=== PATIENT | male | born 1945 | race Caucasian/White ===

== ENCOUNTER 2016-07-20 05:14 | Inpatient (IN) | payer MEDICARE, OTHER ==
[2016-07-20] VITALS (22 sets, daily range): BP systolic 124–154; BP diastolic 61–80; PULSE 56–87; RESP 0–18; Ht 175.3 cm; Wt 92.7 kg
[~2016-07-20] VITALS: Ht 175.3 cm; Wt 92.7 kg
[2016-07-20] MEDS ORDERED: LACTATED RINGER'S 1,000 ML IV* SCH ×2 (06:00)
[2016-07-20] MEDS ORDERED: VANCOMYCIN 1 GM (PMX) 250 ML IVPB SCH (06:00)
[2016-07-20] MEDS ORDERED: PROPOFOL 100 ML ONE (06:49)
[2016-07-20] MEDS ORDERED: ROCURONIUM 50 MG INJ ONE ×2 (06:49→08:55)
[2016-07-20] MEDS ORDERED: SUCCINYLCHOLINE CHLORIDE 100 MG/5 ML SYG IV ONE ×2 (06:49→08:55)
[2016-07-20] MEDS ORDERED: FENTAnyl 50 MCG/ML VIAL ONE (06:50)
[2016-07-20] MEDS ORDERED: MIDAZOLAM 1 MG/ML 2 ML INJ ONE (06:50)
[2016-07-20] MEDS ORDERED: ASPI-664 PO (06:58)
[2016-07-20] MEDS ORDERED: AMLO-147 PO (06:58)
[2016-07-20] MEDS ORDERED: UBID50TA PO (06:58)
[2016-07-20] MEDS ORDERED: ATOR40TA68 PO (06:58)
[2016-07-20] MEDS ORDERED: FAMO40TA52 PO (06:58)
[2016-07-20] MEDS ORDERED: HETASTARCH 6% NACL 500 ML BAG ONE (07:00)
[2016-07-20] MEDS ORDERED: MULT-238 PO (07:01)
[2016-07-20] MEDS ORDERED: LACT1CAP47 PO (07:01)
--- NOTE | 2016-07-20 07:05 | HPN ---
Date/Time of Note Date/Time of Note DATE: 07/20/16 TIME: 07:05 Interval H&P Admission Note Pt. seen H&P reviewed: No system changes TALIB MAHMOOD MD July 20, 2016 07:05
[2016-07-20] MEDS ORDERED: LABETALOL HCL 20MG INJ ONE (07:21)
[2016-07-20] MEDS ORDERED: GELATIN SIZE 100 SPONGE ONE (07:22)
[2016-07-20] MEDS ORDERED: THROMBIN 5000 UNIT VIAL ONE (07:22)
[2016-07-20] MEDS ORDERED: POLYMYXIN/BACITRACIN 1L IRRIG ONE (07:22)
[2016-07-20] MEDS ORDERED: BUPIVACAINE 0.25% (MPF) 10 ML 10 ML VIAL ONE (07:22)
[2016-07-20] MEDS ORDERED: hydrALAzine 20 MG INJ ONE (07:31)
[2016-07-20] MEDS ORDERED: ACETAMINOPHEN 1000MG/100ML IV 100 ML ONE (07:32)
[2016-07-20] MEDS ORDERED: PHENYLephrine (100 MCG/ML) 5ML SYG ONE ×3 (07:36→09:08)
[2016-07-20] MEDS ORDERED: KETOROLAC 30 MG INJ ONE (08:08)
[2016-07-20] MEDS ORDERED: DEXAMETHASONE 4 MG/ML 1 ML INJ ONE (08:08)
[2016-07-20] MEDS ORDERED: ONDANSETRON 4 MG INJ ONE (08:08)
[2016-07-20] MEDS ORDERED: METOCLOPRAMIDE 10 MG INJ ONE (08:08)
[2016-07-20] MEDS ORDERED: NEOSTIGMINE 3 MG/3 ML SYRINGE ONE (08:47)
[2016-07-20] MEDS ORDERED: GLYCOPYRROLATE 0.4 MG INJ ONE (08:47)
[2016-07-20] MEDS ORDERED: EPHEDrine SULFATE 50 MG/5 ML SYG ONE (08:55)
[2016-07-20] MEDS ORDERED: LABETALOL HCL 20MG INJ IV PRN (09:00)
[2016-07-20] MEDS ORDERED: METOCLOPRAMIDE 10 MG INJ IV PRN (09:00)
[2016-07-20] MEDS ORDERED: DIPHENHYDRAMINE 50 MG INJ IV PRN (09:00)
[2016-07-20] MEDS ORDERED: HYDROmorphONE (0.2 MG/ML) 10ML SYG IV PRN ×3 (09:00)
[2016-07-20] MEDS ORDERED: hydrALAzine 20 MG INJ IV PRN (09:00)
[2016-07-20] MEDS ORDERED: MEPERIDINE 25 MG INJ IV PRN (09:00)
[2016-07-20] MEDS ORDERED: EPHEDrine SULFATE 50 MG/5 ML SYG IV PRN (09:00)
[2016-07-20] MEDS ORDERED: ONDANSETRON 4 MG INJ IV PRN ×2 (09:00→10:30)
[2016-07-20] MEDS ORDERED: morphine (1 MG/ML) 10ML SYRINGE IV PRN ×3 (09:00)
[2016-07-20] MEDS ORDERED: EPINEPHrine 0.1 MG/ML SYG ONE (09:10)
[2016-07-20] MEDS ORDERED: PHENYLephrine 10 MG INJ ONE (09:11)
--- NOTE | 2016-07-20 10:23 | OPR ---
Date/Time of Note Date/Time of Note DATE: 07/20/16 TIME: 10:20 Operative Report Preoperative Diagnosis Lumbar spinal stenosis at L3-L4 and L5 Postoperative Diagnosis Same Operation Performed Central decompressive laminectomy at L3 Central decompressive laminectomy at L4 Central decompressive laminectomy at L5 Medial facetectomy and foraminotomy L3-4 L4-5 and L5-S1 bilaterally Surgeon: TALIB MAHMOOD MD press assistant and feeder: BÁRBARA TORO Anesthesia: general Anesthesiologist: EVONNE CATES MD Estimated Blood Loss: 50 - 100 ml's Specimens Spinous processes of L3-L4 and L5 Tubes/Drains 2 medium Hemovac drains Complications: None Pt Condition Post Procedure: stable Operative\Procedure Findings At surgery, lumbar spinal stenosis at L3-L4 and L5 was confirmed TALIB MAHMOOD MD July 20, 2016 10:23
--- NOTE | 2016-07-20 10:29 | RADRPT ---
PROCEDURE: XR Lumbar Spine. CLINICAL INDICATION: Preoperative localization TECHNIQUE: A lateral view of the lumbar spine was obtained. COMPARISON: Plain films from the same day FINDINGS: There are probes directed at the L3-4 and L5-S1 levels. Severe diffuse degenerative disk disease is present. IMPRESSION: Intraoperative localization. Probes directed at the L3-4 and L5-S1 levels. RPTAT: QQ .Dawna Nova MD, MD Date Time Electronically viewed and signed by .Dawna Nova MD, on 07/20/2016 10:28 .F/
[2016-07-20] MEDS ORDERED: ZOLPIDEM 5 MG TAB PO PRN (10:30)
[2016-07-20] MEDS ORDERED: ACETAMINOPHEN 325 MG TAB PO PRN (10:30)
[2016-07-20] MEDS ORDERED: HYDROCODONE/APAP (5/325) TAB PO PRN (10:30)
[2016-07-20] MEDS ORDERED: PROCHLORPERAZINE 10 MG TAB PO PRN (10:30)
[2016-07-20] MEDS: VANCOMYCIN 1 GM (PMX) 250 ML IVPB SCH ×2 (10:30→22:30)
[2016-07-20] MEDS ORDERED: NALOXONE (0.4 MG/ML) INJ IV PRN (10:30)
[2016-07-20] MEDS ORDERED: DIAZEPAM 5 MG/ML SYG IM PRN (10:30)
[2016-07-20] MEDS ORDERED: CEPASTAT LOZENGE MT PRN (10:30)
[2016-07-20] MEDS ORDERED: TRIMETHOBENZAMIDE 100 MG/ML VIAL IM PRN (10:30)
[2016-07-20] MEDS ORDERED: DIPHENHYDRAMINE 50 MG CAP PO PRN (10:30)
[2016-07-20] MEDS ORDERED: NACL 0.9% 3 ML SYG IV SCH (10:30)
[2016-07-20] MEDS ORDERED: BETHANECHOL 25 MG TAB PO PRN (10:30)
[2016-07-20] MEDS ORDERED: DIAZEPAM 5 MG TAB PO PRN (10:30)
[2016-07-20] MEDS: morphine 1 MG/ML 30 ML (PCA) IV SCH ×2 (10:36→20:29)
--- NOTE | 2016-07-20 10:41 | RADRPT ---
PROCEDURE: XR Lumbar Spine. CLINICAL INDICATION: Intraoperative localization TECHNIQUE: A lateral view of the lumbar spine was obtained. COMPARISON: Plain films from the same day FINDINGS: There are probes directed at L3, L4 and L5 vertebral bodies and posterior elements. Severe diffuse degenerative disk disease is noted. IMPRESSION: Intraoperative localization of L3, L4, and L5. RPTAT: QQ .Dawna Nova MD, MD Date Time Electronically viewed and signed by .Dawna Nova MD, on 07/20/2016 10:40 .F/
--- NOTE | 2016-07-20 11:12 | OPR ---
DATE OF OPERATION: 07/20/2016 PREOPERATIVE DIAGNOSIS: Lumbar spinal stenosis at L3-4 and L5. POSTOPERATIVE DIAGNOSIS: Lumbar spinal stenosis at L3-4, and L5. OPERATION/PROCEDURES: 1. Decompressive laminectomy at L3. 2. Decompressive laminectomy at L4. 3. Decompressive laminectomy at L5. 4. Medial facetectomy and foraminotomy, L3-4, L4-5, L5-S1 bilaterally. 5. Cosmetic wound closure (14 cm). 6. Lateral localized lumbar radiographs (2) SURGEON: Leonardo Mtichell MD LINER REROLL TENDER Lana Bess PA-C ANESTHESIA: General endotracheal. ANESTHESIOLOGIST: Dr. Moser ESTIMATED BLOOD LOSS: 100 mL, none replaced. DRAINS: Two medium Hemovac drains employed. COMPLICATIONS: None. PERTINENT HISTORY AND PHYSICAL: This is a 70-year-old male with persistent back and lower extremity complaints, right greater than left, which have been unrelieved by conservative management. He has undergone a number of diagnostic studies including an MRI of the lumbar spine, which demonstrated l umbar spinal stenosis at L3, L4, and L5. Treatment options were discussed with the patient, who sandy cted to proceed with surgery. OPERATIVE FINDINGS AT SURGERY: The patient had multilevel spinal stenosis, most severe at L4-L5. B aseline intraoperative nerve monitoring revealed a decrease in the L3 potential on the left of 30%, the L3 potential on the right of 10%, the L4 potential on the left of 60%, the L4 potential on the r ight of 30%, the L5 potentials bilaterally of 50% and the S1 potentials bilaterally of 20%. These a ll returned to normal at the completion of surgery. OPERATIVE PROCEDURE: With the patient in supine position after satisfactory induction of general en dotracheal anesthesia by Dr. Moser, the patient was turned to the prone kneeling position on the [facility] frame. All pressure points were carefully padded. The back was prepped and draped in usual sterile fashion. Athrombic pumps were applied to the legs below the knees to prevent venous stasis during and after procedure. An indwelling Tinoco catheter was also placed preoperatively to facilit ate bladder drainage during and after the procedure. Two spinal needles were placed next to what wa s felt to be the spinous process of L3 and L5, and lateral roentgenogram was taken to confirm anatom ic localization. A 14 cm incision then carried out midline from L3 to sacrum through skin and subcu taneous tissue to the deep fascia after skin was infiltrated with 0.25% Marcaine without epinephrine for postoperative analgesia. Superficial retractors were placed and hemostasis secured with electr ocautery. Throughout the procedure, copious amounts of antibacterial irrigating solution were used to periodically irrigate the wound. The fascia was incised in midline with a hot knife and a bilate ral subperiosteal dissection carried out from L3 to sacrum. Deep retractors were placed and deep he mostasis secured with electrocautery. A second intraoperative radiograph was taken with Yanci clam ps placed in what was felt to be the spinous process of L3, L4, and L5 and this was confirmed with s econd x-ray. A central decompressive laminectomy at L3, L4, and L5 was then carried out using a Hor sley right-angle bone rongeur, Leksell rongeur, Kerrison punches and curettes. Ligamentum flavum wa s incised with sharp dissection. The operating microscope was moved into place. A medial facetecto my and foraminotomy was accomplished at L3-4, L4-5, L5-S1 bilaterally using small hand osteotome mal let, Kerrison punches and curettes. The anesthesiologist was asked to perform a Valsalva maneuver a t 40 mmHg and no spinal fluid leak was noted. The wound was then closed in layers over 2 medium Hemovac drains, one below the fascia and one above the fascia using #1 Stratafix sutures on the deep paralumbar musculature and deep fascia of back, 2 -0 Stratafix sutures in subcu tissue, and a 4-0 Vicryl subcuticular cosmetic closing suture on the s kin. Dermabond and sterile compressive dressings were applied. Patient having tolerated procedure well, was then turned to supine position onto his bed and extubated by Dr. Moser. He was transpor salima to recovery room in satisfactory condition. At the conclusion of procedure, sponge, instrument, and needle counts were all correct. NEED FOR MANUAL LATHE MACHINIST: During this spinal surgical procedure, my assistant press operator was used to retrac t and protect the spinal nerves and dural sac. My assistant press operator also employed the suction catheters to e vacuate blood from the surgical field to improve visualization of the neural structures. The assista nt was medically necessary to facilitate the completion of the surgery in a safe and expeditious man ner. State of [place] regulations, as well as hospital bylaws, preclude the use of non-licensed [facility] care personnel such as operating room technicians, to perform these functions. Throughout the procedure, neural monitoring was carried out by [employer] including EMG, SSEP and MEP monitoring of the L3, L4, L5 and S1 nerve roots bilaterally along with s jamee cord potentials. These were interpreted by neurologist employed by [employer]. Dictated By: LEONARDO MITCHELL MD TM/NTS Conf#: [id number] DID#: [id number] CC: DAVID TREVINO MD;*End*
--- NOTE | 2016-07-20 14:17 | PREOPHP ---
DATE OF ADMISSION: 07/20/2016 TYPE OF CONSULTATION: Medical. Thank you, Dr. Mitchell, for asking me to participate in medical management of this patient. REASON FOR CONSULTATION: To manage the patient's hypertension, hyperlipidemia and gastroesophageal reflux disease. HISTORY OF PRESENT ILLNESS: This 70-year-old man is now postop a lumbar spine surgery by Dr. Brown er today. The patient was having low back pain with radiation down both legs, more on the right lambert n the left. The patient preoperatively was diagnosed as having lumbar spine stenosis at the L3, L4, L5 level and at the L5. The patient underwent a decompressive laminectomy at L3, at L4 and at L5. The patient is now awake and alert. He denies any chest pain or shortness of breath. PAST MEDICAL HISTORY: Hypertension, hyperlipidemia, gastroesophageal reflux disease. CURRENT MEDICATIONS: Includes the followin. Famotidine 40 mg twice a day. 2. Atorvastatin 20 mg a day. 3. Amlodipine 10 mg a day. He was on aspirin which he discontinued 2 weeks ago. PAST SURGICAL HISTORY: Arthroscopic knee surgery bilaterally, colonoscopy with polypectomy, skin bi opsy. SOCIAL HISTORY: The patient has never smoked cigarettes. Drinks alcohol socially. FAMILY HISTORY: Remarkable for heart disease and kidney disease. ALLERGIES: HE IS ALLERGIC TO 1. VENOM FROM HONEY BEE STINGS. 2. PENICILLIN. PHYSICAL EXAMINATION: GENERAL: At this time reveals a well-developed man in no apparent distress. VITAL SIGNS: Pulse is 86, respirations 17, blood pressure 143/66, O2 saturation 96% on 3 liters. HEENT: Head normocephalic. Eyes: Extraocular muscles intact. NOSE AND MOUTH: Normal. NECK: Supple. No neck vein distention. LUNGS: Clear to auscultation. HEART: Regular rhythm. No murmurs, gallops or rubs. ABDOMEN: Soft, nontender, no masses or megaly. EXTREMITIES: No peripheral edema. IMPRESSION: This patient is stable after surgery today. His blood pressure is slightly elevated bu t acceptable. He is asymptomatic except for his low back pain at the site of his surgery. I will m anage the patient's hypertension, hyperlipidemia, gastroesophageal reflux disease. PLAN: 1. Resume routine medications. 2. Check labs in the morning. 3. Postop lumbar spine surgery protocol. 4. I will follow the patient along with you medically. Dictated By: DAVID TREVINO MD, ND/LUIS Conf#: [id number] DID#: [id number]
[2016-07-20] MEDS: DEXTROSE 5%-0.45% NACL 1,000 ML IV SCH ×2 (16:23→20:07)
[2016-07-20] MEDS: AMLODIPINE 10 MG TAB PO SCH (16:25)
[2016-07-20] MEDS: RANITIDINE 150 MG TAB PO SCH (20:28)
[2016-07-20] MEDS: ATORVASTATIN 20 MG TAB PO SCH (20:28)
[2016-07-20] MEDS: FAMOTIDINE 20 MG TAB PO SCH (20:28)
[2016-07-21 00:30] VITALS: BP 147/69; PULSE 82; RESP 20
[2016-07-21] MEDS: DEXTROSE 5%-0.45% NACL 1,000 ML IV SCH ×2 (03:53→16:07)
[2016-07-21 05:47] VITALS: BP 146/65; PULSE 79; RESP 20
[2016-07-21 05:54] LABS: HEMATOCRIT 34.1 % (42.0-52.0); HEMOGLOBIN 11.4 g/dl (14.0-18.0)
[2016-07-21 06:15] LABS: CALCIUM 8.1 mg/dl (8.4-10.2); CREATININE 0.76 mg/dl (0.61-1.24); POTASSIUM 3.6 mmol/L (3.5-5.1)
--- NOTE | 2016-07-21 07:12 | PN ---
Date/Time of Note Date/Time of Note DATE: 07/21/16 TIME: 07:11 Assessment/Plan Lines/Catheters IV Catheter Type (from Nrs): Peripheral IV Tinoco in Place (from Nrs): Yes Subjective 24 Hr Interval Summary The patient is postop day #1 following a multilevel decompressive lumbar laminectomy. He is resting comfortably in bed. He is afebrile. Neurovascular structures are intact distally. His a.m. labs are unremarkable. He will be mobilized by physical therapy as tolerated. His Hemovac has 100 cc and will be left in place. Exam/Review of Systems Vital Signs Vitals Vital Signs Date Time Temp Pulse Resp B/P Pulse Ox O2 Delivery O2 Flow Rate FiO2 07/21/16 05:47 98.1 79 20 146/65 95 Room Air 07/20/16 14:30 1.0 Intake and Output 07/20/16 07/20/16 07/21/16 15:00 23:00 07:00 Intake Total 2600 ml 1500 ml 1550 ml Output Total 590 ml 2380 ml 2300 ml Balance 2010 ml -880 ml -750 ml Results Result Diagram: 07/21/16 0450 07/21/16 0450 TALIB MAHMOOD MD July 21, 2016 07:11
[2016-07-21] MEDS ORDERED: BETHANECHOL 25 MG TAB PO PRN (08:00)
--- NOTE | 2016-07-21 08:15 | OPPN ---
Date/Time of Note Date/Time of Note DATE: 07/21/16 TIME: 08:14 Post-Anesthesia Notes Post-Anesthesia Note Last documented vital signs Vital Signs Date Time Temp Pulse Resp B/P Pulse Ox O2 Delivery O2 Flow Rate FiO2 07/21/16 05:47 98.1 79 20 146/65 95 Room Air 07/20/16 14:30 1.0 Activity: WNL Respiratory function: WNL Cardiovascular function: WNL Mental status: Baseline Pain reasonably controlled: Yes Hydration appropriate: Yes Nausea/Vomiting absent: Yes EVONNE CATES MD July 21, 2016 08:15
[2016-07-21 08:32] VITALS: BP 138/64; RESP 14
--- NOTE | 2016-07-21 08:33 | CONS ---
Date/Time of Note Date/Time of Note DATE: 07/21/16 TIME: 08:30 Assessment/Plan Assessment/Plan Chief Complaint/Hosp Course 1. he is 1 day post op a multilevel lumbar spine surgery . He is doing well . 2. continue current medication and PT . Problems: Consultation Date/Type/Reason Admit Date/Time July 20, 2016 at 05:14 Initial Consult Date 24 HR Interval Summary Free Text/Dictation He is 1 day post op a multilevel lumbar spine surgery . He feels well . Constitutional: improved, no complaints Exam/Review of Systems Vital Signs Vitals Vital Signs Date Time Temp Pulse Resp B/P Pulse Ox O2 Delivery O2 Flow Rate FiO2 07/21/16 05:47 98.1 79 20 146/65 95 Room Air 07/20/16 14:30 1.0 Intake and Output 07/20/16 07/20/16 07/21/16 15:00 23:00 07:00 Intake Total 2600 ml 1500 ml 1550 ml Output Total 590 ml 2380 ml 2300 ml Balance 2010 ml -880 ml -750 ml Exam Constitutional: alert, oriented, well developed Respiratory: clear to auscultation, normal air movement Cardiovascular: regular rate and rhythm Gastrointestinal: non-tender, soft Musculoskeletal: nl extremities to inspection Results Result Diagram: 07/21/16 0450 07/21/16 0450 Results 24 hrs Laboratory Tests Test 07/21/16 04:50 Hemoglobin 11.4 L Hematocrit 34.1 L Sodium Level 137 Potassium Level 3.6 Chloride Level 106 Carbon Dioxide Level 27 Anion Gap 8 Blood Urea Nitrogen 12 Creatinine 0.76 Glucose Level 140 Calcium Level 8.1 L Medications Medications Current Medications Lactated Ringer's 1,000 ml @ 0 mls/hr Q0M IV* Last administered on 07/20/16 06:12; Admin Dose 0 MLS/HR; Start 07/20/16 at 06:00 Lactated Ringer's 1,000 ml @ 0 mls/hr Q0M IV* ; Start 07/20/16 at 06:00 Dextrose/Sodium Chloride (D5-1/2ns) 1,000 ml @ 100 mls/hr Q10H IV Last administered on 07/21/16 03:53; Admin Dose 100 MLS/HR; Start 07/20/16 at 10:07 Acetaminophen/ Hydrocodone Bitart ([place] (5/325)) 1 tab Q4H PRN PO PAIN LEVEL 1 -5; Start 07/20/16 at 10:30 Acetaminophen/ Hydrocodone Bitart ([place] (5/325)) 2 tab Q4H PRN PO PAIN LEVEL 6 -10; Start 07/20/16 at 10:30 Zolpidem Tartrate (Ambien) 5 mg HS PRN PO INSOMNIA; Start 07/20/16 at 10:30 Prochlorperazine (Compazine) 10 mg Q4H PRN PO NAUSEA AND/OR VOMITING; Start at 10:30 Trimethobenzamide HCl (Tigan) 200 mg Q4H PRN IM NAUSEA AND/OR VOMITING; Start 07/20/16 at 10:30 Ondansetron HCl (Zofran Inj) 4 mg Q6H PRN IV NAUSEA AND/OR VOMITING; Start at 10:30 Al Hydrox/Mg Hydrox/Simethicone (Mag-Al Plus) 15 ml Q4H PRN PO CONSTIPATION; Start 07/20/16 at 10:30 Docusate Sodium (Colace) 100 mg BID PO ; Start 07/21/16 at 09:00 Acetaminophen (Tylenol Tab) 650 mg Q4H PRN PO TEMP GREATER THAN 101F OR PAYAN; Start 07/20/16 at 10:30 Ascorbic Acid (Vitamin C) 1,000 mg BID PO ; Start 07/21/16 at 09:00 Ferrous Sulfate (Ferrous Sulfate (Ec)) 325 mg TID PO ; Start 07/21/16 at 09:00 Ranitidine HCl (Zantac) 150 mg BID PO Last administered on 07/20/16t 20:28; Admin Dose 150 MG; Start 07/20/16 at 21:00 Diazepam (Valium) 5 mg Q4H PRN PO MUSCLE SPASMS; Start 07/20/16 at 10:30 Diazepam (Valium) 5 mg Q4H PRN IM MUSCLE SPASMS; Start 07/20/16 at 10:30 Phenol (Cepastat Lozenge) 1 lozenge PRN PRN MT SORE THROAT; Start 07/20/16 at 10:30 Diphenhydramine HCl (Benadryl) 50 mg Q6H PRN PO PRURITUS; Start 07/20/16 at 10: 30 Morphine Sulfate (morphine) Q4PCA IV Last administered on 07/20/16 20:29; Admin Dose 30 MG; Start 07/20/16 at 10:30 Naloxone HCl (Narcan) 0.2 mg Q2M PRN IV RR 8 BREATHS/MIN OR LESS; Start at 10:30 Amlodipine Besylate (Norvasc) 10 mg DAILY PO Last administered on 07/20/16 16: 25; Admin Dose 10 MG; Start 07/20/16 at 14:00 Atorvastatin Calcium (Lipitor) 20 mg QHS PO Last administered on 07/20/16 20: 28; Admin Dose 20 MG; Start 07/20/16 at 21:00 Famotidine (Pepcid) 40 mg BID PO Last administered on 07/20/16 20:28; Admin Dose 40 MG; Start 07/20/16 at 21:00 Bethanechol Chloride (Urecholine) 25 mg PRN PRN PO UNABLE TO VOID; Start at 08:00 DAVID TREVINO MD July 21, 2016 08:33
[2016-07-21] MEDS: ASCORBIC ACID 500 MG TAB PO SCH ×2 (08:45→21:41)
[2016-07-21] MEDS: FAMOTIDINE 20 MG TAB PO SCH ×2 (08:45→21:41)
[2016-07-21] MEDS: DOCUSATE SODIUM 100 MG CAP PO SCH ×2 (08:45→21:41)
[2016-07-21] MEDS: HYDROCODONE/APAP (5/325) TAB PO PRN ×3 (08:46→21:41)
[2016-07-21] MEDS: FERROUS SULFATE (EC) 325 MG TAB PO SCH ×3 (08:46→21:41)
[2016-07-21] MEDS: AMLODIPINE 10 MG TAB PO SCH (08:47)
[2016-07-21] MEDS: RANITIDINE 150 MG TAB PO SCH ×2 (08:47→21:41)
[2016-07-21 13:52] LABS: ADD UMIC YES; URINE BILIRUBIN (Dip) NEGATIVE (NEGATIVE); URINE BLOOD (Dip) 1+ (NEGATIVE); URINE COLOR LT. YELLOW (YELLOW); URINE GLUCOSE (Dip) NEGATIVE (NEGATIVE); URINE KETONES (Dip) NEGATIVE (NEGATIVE); URINE LEUKOCYTE ESTERASE (Dip) NEGATIVE (NEGATIVE); URINE NITRITE (Dip) NEGATIVE (NEGATIVE); URINE TOTAL PROTEIN (Dip) 1+ (NEGATIVE); URINE UROBILINOGEN (Dip) 0.2 E.U./dL (0.1-1.0)
[2016-07-21 14:06] LABS: MUCUS,URINE FEW
--- NOTE | 2016-07-21 14:11 | RADRPT ---
Vent Rate: 64 bpm RR Interval: 0 msec LA Interval: 232 msec QRS Duration: 98 msec QT Interval: 416 msec QTC Interval: 429 msec P-R-T [place]: 53 - -25 - 13 degrees Sinus rhythm with 1st degree AV block Otherwise normal ECG Electronically Signed By: Tim Bartholomew [id number]
[2016-07-21 20:56] VITALS: BP 137/67; RESP 19
[2016-07-21] MEDS: ATORVASTATIN 20 MG TAB PO SCH (21:41)
[2016-07-22] MEDS: DEXTROSE 5%-0.45% NACL 1,000 ML IV SCH ×2 (01:19→09:21)
[2016-07-22] MEDS: AL HYDROX/MG HYDROX/SIMETH 30 ML CUP PO PRN ×2 (06:18→14:23)
--- NOTE | 2016-07-22 06:54 | PN ---
Date/Time of Note Date/Time of Note DATE: 07/22/16 TIME: 06:53 Assessment/Plan Lines/Catheters IV Catheter Type (from Nrsg): Saline Lock Tinoco in Place (from Nrsg): No Subjective 24 Hr Interval Summary The patient is postop day #2 following multilevel decompressive lumbar laminectomy. He is resting comfortably in bed. Neurovascular structures are intact distally his morning lab work is unremarkable. He has 50 cc of drainage in his Hemovac from last night, and the Hemovac will be left in place. He is doing very well with physical therapy. Exam/Review of Systems Vital Signs Vitals Vital Signs Date Time Temp Pulse Resp B/P Pulse Ox O2 Delivery O2 Flow Rate FiO2 07/21/16 20:56 97.9 70 19 137/67 95 07/21/16 05:47 Room Air 07/20/16 14:30 1.0 Intake and Output 07/21/16 07/21/16 07/22/16 15:00 23:00 07:00 Intake Total 200 ml 1200 ml 640 ml Output Total 2150 ml 50 ml Balance 200 ml -950 ml 590 ml Results Result Diagram: 07/21/16 0450 07/21/16 0450 TALIB MAHMOOD MD July 22, 2016 06:54
[2016-07-22 07:00] VITALS: BP 155/72; RESP 18
[2016-07-22] MEDS: AMLODIPINE 10 MG TAB PO SCH (08:28)
[2016-07-22] MEDS: FERROUS SULFATE (EC) 325 MG TAB PO SCH ×2 (08:28→12:30)
[2016-07-22] MEDS: HYDROCODONE/APAP (5/325) TAB PO PRN ×2 (08:28→18:05)
[2016-07-22] MEDS: DOCUSATE SODIUM 100 MG CAP PO SCH (08:28)
[2016-07-22] MEDS: ASCORBIC ACID 500 MG TAB PO SCH (08:28)
[2016-07-22] MEDS: RANITIDINE 150 MG TAB PO SCH (08:29)
[2016-07-22] MEDS: FAMOTIDINE 20 MG TAB PO SCH (08:29)
--- NOTE | 2016-07-22 08:42 | CONS ---
Date/Time of Note Date/Time of Note DATE: 07/22/16 TIME: 08:39 Assessment/Plan Assessment/Plan Chief Complaint/Hosp Course 1. he is 2 days post op a multilevel lumbar spine surgery . He is doing well . 2. continue current medication and PT . 3. he can be discharged once drain is removed . Problems: Consultation Date/Type/Reason Admit Date/Time July 20, 2016 at 05:14 24 HR Interval Summary Free Text/Dictation he is feeling well except for incisional back pain . Constitutional: improved, no complaints Exam/Review of Systems Vital Signs Vitals Vital Signs Date Time Temp Pulse Resp B/P Pulse Ox O2 Delivery O2 Flow Rate FiO2 07/22/16 07:00 98.8 85 18 155/72 94 07/21/16 05:47 Room Air 07/20/16 14:30 1.0 Intake and Output 07/21/16 07/21/16 07/22/16 15:00 23:00 07:00 Intake Total 200 ml 1200 ml 640 ml Output Total 2150 ml 50 ml Balance 200 ml -950 ml 590 ml Exam Constitutional: alert, oriented, well developed Respiratory: clear to auscultation, normal air movement Cardiovascular: nl pulses, regular rate and rhythm Gastrointestinal: soft Musculoskeletal: nl extremities to inspection Results Result Diagram: 07/21/16 0450 07/21/16 0450 Results 24 hrs Laboratory Tests Test 07/21/16 09:10 Urine Color LT. YELLOW Urine Clarity CLEAR Urine pH 5.5 Urine Specific [place] 1.025 Urine Ketones NEGATIVE Urine Nitrite NEGATIVE Urine Bilirubin NEGATIVE Urine Urobilinogen 0.2 E.U./dL Urine Leukocyte Esterase NEGATIVE Urine Microscopic RBC 2-5 Urine Microscopic WBC NONE SEEN Urine Amorphous Urates FEW Urine Mucus FEW Urine Hemoglobin 1+ H Urine Glucose NEGATIVE Urine Total Protein 1+ H Medications Medications Current Medications Lactated Ringer's 1,000 ml @ 0 mls/hr Q0M IV* Last administered on 07/20/16 06:12; Admin Dose 0 MLS/HR; Start 07/20/16 at 06:00 Lactated Ringer's 1,000 ml @ 0 mls/hr Q0M IV* ; Start 07/20/16 at 06:00 Dextrose/Sodium Chloride (D5-1/2ns) 1,000 ml @ 100 mls/hr Q10H IV Last administered on 07/21/16 03:53; Admin Dose 100 MLS/HR; Start 07/20/16 at 10:07 Acetaminophen/ Hydrocodone Bitart ([place] (5/325)) 1 tab Q4H PRN PO PAIN LEVEL 1 -5 Last administered on 07/22/16 08:28; Admin Dose 1 TAB; Start 07/20/16 at 10: 30 Acetaminophen/ Hydrocodone Bitart ([place] (5/325)) 2 tab Q4H PRN PO PAIN LEVEL 6 -10; Start 07/20/16 at 10:30 Zolpidem Tartrate (Ambien) 5 mg HS PRN PO INSOMNIA; Start 07/20/16 at 10:30 Prochlorperazine (Compazine) 10 mg Q4H PRN PO NAUSEA AND/OR VOMITING; Start at 10:30 Trimethobenzamide HCl (Tigan) 200 mg Q4H PRN IM NAUSEA AND/OR VOMITING; Start 07/20/16 at 10:30 Ondansetron HCl (Zofran Inj) 4 mg Q6H PRN IV NAUSEA AND/OR VOMITING; Start at 10:30 Al Hydrox/Mg Hydrox/Simethicone (Mag-Al Plus) 15 ml Q4H PRN PO CONSTIPATION Last administered on 07/22/16 06:18; Admin Dose 15 ML; Start 07/20/16 at 10:30 Docusate Sodium (Colace) 100 mg BID PO Last administered on 07/22/16 08:28; Admin Dose 100 MG; Start 07/21/16 at 09:00 Acetaminophen (Tylenol Tab) 650 mg Q4H PRN PO TEMP GREATER THAN 101F OR PAYAN; Start 07/20/16 at 10:30 Ascorbic Acid (Vitamin C) 1,000 mg BID PO Last administered on 07/22/16 08:28 ; Admin Dose 1,000 MG; Start 07/21/16 at 09:00 Ferrous Sulfate (Ferrous Sulfate (Ec)) 325 mg TID PO Last administered on 08:28; Admin Dose 325 MG; Start 07/21/16 at 09:00 Ranitidine HCl (Zantac) 150 mg BID PO Last administered on 07/22/16 08:29; Admin Dose 150 MG; Start 07/20/16 at 21:00 Diazepam (Valium) 5 mg Q4H PRN PO MUSCLE SPASMS; Start 07/20/16 at 10:30 Diazepam (Valium) 5 mg Q4H PRN IM MUSCLE SPASMS; Start 07/20/16 at 10:30 Phenol (Cepastat Lozenge) 1 lozenge PRN PRN MT SORE THROAT; Start 07/20/16 at 10:30 Diphenhydramine HCl (Benadryl) 50 mg Q6H PRN PO PRURITUS; Start 07/20/16 at 10: 30 Morphine Sulfate (morphine) Q4PCA IV Last administered on 07/20/16 20:29; Admin Dose 30 MG; Start 07/20/16 at 10:30 Naloxone HCl (Narcan) 0.2 mg Q2M PRN IV RR 8 BREATHS/MIN OR LESS; Start at 10:30 Amlodipine Besylate (Norvasc) 10 mg DAILY PO Last administered on 07/22/16 08: 28; Admin Dose 10 MG; Start 07/20/16 at 14:00 Atorvastatin Calcium (Lipitor) 20 mg QHS PO Last administered on 07/21/16 21: 41; Admin Dose 20 MG; Start 07/20/16 at 21:00 Famotidine (Pepcid) 40 mg BID PO Last administered on 07/22/16 08:29; Admin Dose 40 MG; Start 07/20/16 at 21:00 Bethanechol Chloride (Urecholine) 25 mg PRN PRN PO UNABLE TO VOID; Start at 08:00 DAVID TREVINO MD July 22, 2016 08:42
[2016-07-22] MEDS ORDERED: NA PHOSPHATE/BIPHOS 133 ML ENEMA PR ONE (16:00)
[2016-07-22] MEDS ORDERED: BISACODYL 10 MG SUPP PR ONE (16:00)
== END 2016-07-22 18:15 | disposition home or self-care (01) | DRG 517 ==
LOC: REC 05:14 → MS1 11:20
PROVIDERS: ADMIT Orthopaedic Surgery; ATTEND Orthopaedic Surgery
PROC: 01NB0ZZ Release Lumbar Nerve, Open Approach (ICD-10-PCS; principal; 2016-07-20 07:00)
DX: M48.06 Spinal stenosis, lumbar region (principal); I10 Essential (primary) hypertension; E78.5 Hyperlipidemia, unspecified; K21.9 Gastro-esophageal reflux disease without esophagitis
CPT/HCPCS: 72020; 80048; 81001; 85014; 85018; 86850; 86900; 86901; 86920; 87086; 88304; 93005; 97116; 97163; 97530; J0131; J0171; J0360; J1100; J1885; J2175; J2250; J2270; J2370; J2405; J2710; J2765; J3010; J3370; J7042; J7999